=== PATIENT | male | born 2005 | race Hispanic/Latino ===

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

== ENCOUNTER 2023-01-25 00:30 | Emergency (ER) | payer BC, OTHER ==
[~2023-01-25] VITALS: Ht 175.3 cm; Wt 59.4 kg
[~2023-01-25 00:30] MED LIST: IBUP-1493 PO; POLY10DR22 OP
[2023-01-25] MEDS ORDERED: IBUPROFEN 600 MG TABLET PO ONE (01:00)
[2023-01-25] MEDS ORDERED: OCTYL 2-CYANOACRYLATE 1 EACH TP SCH (02:00)
[2023-01-25] MEDS ORDERED: TETANUS/DIPHTHERIA TOXOID [ADULT] 0.5 ML VIAL IM ONE (03:00)
[2023-01-25] MEDS ORDERED: CEFAZOLIN SODIUM 1 GM VIAL IVP SCH (03:30)
[2023-01-25] MEDS ORDERED: MORPHINE 4 MG SYG IVP ONE (03:30)
[2023-01-25] MEDS ORDERED: ONDANSETRON 4MG INJ IVP ONE (03:30)
[2023-01-25 03:40] LABS: BASOPHILS % (AUTO) 0.2 % (0.0-5.0); HEMATOCRIT 43.1 % (42-54); LYMPHOCYTES % (AUTO) 7.3 % (21.0-51.0); MEAN CORPUSCULAR HEMOGLOBIN 30.9 pg (27.0-33.0); MEAN CORPUSCULAR HGB CONC 34.6 g/dL (32.0-36.0); MEAN CORPUSCULAR VOLUME 89.4 fL (80-100); MONOCYTES % (AUTO) 4.7 % (3.0-13.0); NEUTROPHILS % (AUTO) 87.4 % (40.0-77.0); PLATELET COUNT (AUTO) 244 K/uL (130-400); RED BLOOD CELL COUNT(AUTO) 4.82 MIL/uL (4.50-6.20); RED CELL DISTRIBUTION WIDTH 12.8 % (11.0-15.5); WHITE BLOOD COUNT (AUTO) 13.4 K/uL (4.8-10.8)
[2023-01-25 03:52] LABS: CREATININE 1.1 mg/dL (0.5-1.5); POTASSIUM 3.6 mmol/L (3.5-5.1)
[2023-01-25 03:57] LABS: ALBUMIN 4.6 g/dL (3.5-5.0); TOTAL PROTEIN, SERUM 8.3 g/dL (6.0-8.3)
[2023-01-25] MEDS ORDERED: CEFU500T67 PO (06:43)
[2023-01-25] MEDS ORDERED: IBUP-2070 PO (06:43)
[2023-01-25 06:53] VITALS: BP 113/52
== END 2023-01-25 07:17 | disposition home or self-care (01) ==
LOC: EEVIPCON 00:30 → EDH 00:30
DX: S01.111A Laceration without foreign body of right eyelid and periocular area, initial encounter (principal); S60.511A Abrasion of right hand, initial encounter; S61.402A Unspecified open wound of left hand, initial encounter; Y04.0XXA Assault by unarmed brawl or fight, initial encounter; Y93.89 Activity, other specified; Y92.89 Other specified places as the place of occurrence of the external cause; Y99.8 Other external cause status
CPT/HCPCS: 99284; 96374; 96375; 80053; 85025; 87040 ×2; 36415; 90714; 73130 ×2; 90471; J0690; J2405; J2270